=== PATIENT | male | born 2000 | race Caucasian/White ===

== ENCOUNTER 2019-09-26 02:52 | Emergency (ER) | payer BC ==
[~2019-09-26] VITALS: Ht 170.2 cm; Wt 56.8 kg
[2019-09-26 02:57] VITALS: BP 129/70
[2019-09-26] MEDS ORDERED: PENI500T2 PO (03:39)
[2019-09-26] MEDS ORDERED: penicillin V potassium 500mg tablet PO ONE (03:40)
== END 2019-09-26 03:50 | disposition home or self-care (01) ==
LOC: ER 02:53
DX: J02.0 Streptococcal pharyngitis (principal); B95.0 Streptococcus, group A, as the cause of diseases classified elsewhere; R07.89 Other chest pain
CPT/HCPCS: 87880; 99283